=== PATIENT | male | born 1995 | race Caucasian/White ===

== ENCOUNTER 2017-11-27 12:33 | Emergency (ER) | payer SELFPAY ==
[~2017-11-27] VITALS: Ht 190.5 cm; Wt 106.8 kg
[~2017-11-27 12:33] MED LIST: ABILIFY 10MG TA10 MG PO; AMOXICILLIN 50500 MG PO; BACTRIM DS 8001 TA1 PO; GOOD NEIGHBOR200 M3 PO; NO HOME MEDICATIONS; PEN-VEE K250 MG PO; STRATTERA80 MG PO; TRAZADONE HYDR100 MG PO
[2017-11-27 15:08] VITALS: BP 132/85
== END 2017-11-27 15:08 | disposition home or self-care (01) ==
LOC: ED 12:33
DX: G43.909 Migraine, unspecified, not intractable, without status migrainosus (principal); R04.0 Epistaxis; R09.81 Nasal congestion
CPT/HCPCS: J1885; J2550

== ENCOUNTER 2018-01-03 16:20 | Emergency (ER) | payer SELFPAY ==
[~2018-01-03] VITALS: Ht 190.5 cm; Wt 113.6 kg
[2018-01-03] MEDS ORDERED: PENICILLIN-VK500 M1 PO (17:18)
[2018-01-03] MEDS ORDERED: NORCO 10-325 T1 EACH PO (17:18)
[2018-01-03 17:28] VITALS: BP 168/115
== END 2018-01-03 17:26 | disposition home or self-care (01) ==
LOC: ED 16:20
DX: K02.9 Dental caries, unspecified (principal); F17.200 Nicotine dependence, unspecified, uncomplicated; I10 Essential (primary) hypertension
CPT/HCPCS: J1885; J2550

== ENCOUNTER 2018-10-10 20:04 | Emergency (ER) | payer OTHER ==
[~2018-10-10 20:04] MED LIST changes: +AUGMENTIN 875-1 EAC1 PO; +NORCO 10-325 T1 EACH PO; +PENICILLIN-VK500 M1 PO
[2018-10-10 21:04] VITALS: BP 126/90
== END 2018-10-10 21:04 | disposition home or self-care (01) ==
LOC: ED 20:04
DX: S29.012A Strain of muscle and tendon of back wall of thorax, initial encounter (principal); F90.9 Attention-deficit hyperactivity disorder, unspecified type; F17.210 Nicotine dependence, cigarettes, uncomplicated; X50.0XXA Overexertion from strenuous movement or load, initial encounter; Y92.69 Other specified industrial and construction area as the place of occurrence of the external cause; Y99.0 Civilian activity done for income or pay
CPT/HCPCS: J1885

== ENCOUNTER 2019-03-21 22:00 | Emergency (ER) | payer SELFPAY ==
[2019-03-21] MEDS ORDERED: AUGMENTIN 875-1 EAC1 PO (23:13)
[2019-03-21] MEDS ORDERED: NORCO 325 MG-51 TA1 PO (23:16)
[2019-03-22 00:08] VITALS: BP 158/99
== END 2019-03-22 00:08 | disposition home or self-care (01) ==
LOC: ED 22:00
DX: K05.219 Aggressive periodontitis, localized, unspecified severity (principal); K02.9 Dental caries, unspecified; I10 Essential (primary) hypertension; F17.210 Nicotine dependence, cigarettes, uncomplicated
CPT/HCPCS: 90715; J1885

== ENCOUNTER 2019-07-20 06:28 | Emergency (ER) | payer SELFPAY ==
[~2019-07-20] VITALS: Ht 190.5 cm; Wt 144.5 kg
[~2019-07-20 06:28] MED LIST changes: +NORCO 325 MG-51 TA1 PO
[2019-07-20 06:44] VITALS: BP 188/117
[2019-07-20] MEDS ORDERED: NORCO 10-325 T1 EACH PO (07:19)
[2019-07-20] MEDS ORDERED: PENICILLIN-VK500 M1 PO (07:21)
== END 2019-07-20 07:38 | disposition home or self-care (01) ==
LOC: ED 06:28
DX: K02.9 Dental caries, unspecified (principal); F90.9 Attention-deficit hyperactivity disorder, unspecified type; F17.210 Nicotine dependence, cigarettes, uncomplicated
CPT/HCPCS: J1885

== ENCOUNTER → 2020-06-01 | Outpatient (CLI) | payer SELFPAY ==
[~2020-06-01] MED LIST changes: +ADVIL 200MG TA200 MG PO
== END ==
LOC: LAB 13:06
DX: Z03.89 Encounter for observation for other suspected diseases and conditions ruled out (principal); Z20.822 Contact with and (suspected) exposure to COVID-19

== ENCOUNTER 2020-11-06 11:59 | Emergency (ER) | payer SELFPAY ==
[~2020-11-06 11:59] MED LIST changes: -ADVIL 200MG TA200 MG PO
[2020-11-06] MEDS ORDERED: ADVIL 200MG TA200 MG PO (12:23)
[2020-11-06] MEDS ORDERED: AUGMENTIN 875-1 EAC1 PO (13:01)
[2020-11-06 13:28] VITALS: BP 143/99
== END 2020-11-06 13:28 | disposition home or self-care (01) ==
LOC: ED 11:59
DX: K04.7 Periapical abscess without sinus (principal); F17.200 Nicotine dependence, unspecified, uncomplicated

== ENCOUNTER → 2020-12-13 | Outpatient (CLI) | payer SELFPAY ==
[~2020-12-13] MED LIST changes: +ADVIL 200MG TA200 MG PO
== END ==
LOC: LAB 11:53
DX: Z20.822 Contact with and (suspected) exposure to COVID-19 (principal)

== ENCOUNTER 2021-04-11 00:03 | Emergency (ER) | payer SELFPAY ==
[~2021-04-11] VITALS: Ht 193 cm; Wt 144.5 kg
[2021-04-11] MEDS ORDERED: TYLENOL EXTRA500 M2 PO (00:21)
[2021-04-11 00:55] LABS: HEMATOCRIT 44.5 % (42.0-52.0); HEMOGLOBIN 14.8 g/dL (13.5-18.0); MEAN CELL VOLUME 85 fl (78-100); MEAN CORPUSCULAR HEMOGLOBIN 28 pg (27-31); MEAN CORPUSCULAR HGB CONC 33 g/dL (33-37); MEAN PLATELET VOLUME 10.2 fl (7.4-10.4); PLATELET COUNT 228 K/mm3 (130-400); RED BLOOD COUNT 5.23 M/mm3 (4.20-5.60); RED CELL DISTRIBUTION WIDTH 13.1 % (11.5-14.5); WHITE BLOOD COUNT 6.9 K/mm3 (4.8-10.8)
[2021-04-11 01:01] LABS: ALBUMIN 4.7 g/dL (3.5-5.0); POTASSIUM 3.5 mmol/L (3.5-5.1); SODIUM 140 mmol/L (136-145)
[2021-04-11 01:03] LABS: GLUCOSE 115 mg/dL (75-110)
[2021-04-11 01:04] LABS: CALCIUM 9.5 mg/dL (8.3-10.5); TOTAL PROTEIN 7.6 g/dL (6.4-8.3)
[2021-04-11 01:05] LABS: CARBON DIOXIDE 19 mmol/L (22-29)
[2021-04-11 01:07] LABS: TOTAL BILIRUBIN 0.3 mg/dL (0.2-1.2)
[2021-04-11 01:09] LABS: AST-SGOT 21 U/L (5-34)
[2021-04-11 01:12] LABS: ALT/SGPT 54 U/L (0-55)
[2021-04-11 01:20] LABS: URINE APPEARANCE CLEAR; URINE BILIRUBIN NEGATIVE (NEGATIVE); URINE COLOR YELLOW; URINE GLUCOSE NEGATIVE (NEGATIVE); URINE KETONE NEGATIVE (NEGATIVE); URINE NITRATE NEGATIVE (NEGATIVE); URINE PROTEIN(semi-quant) TRACE (NEGATIVE); URINE UROBILINOGEN NORMAL (NORMAL)
[2021-04-11 01:21] LABS: URINE BLOOD TRACE (NEGATIVE); URINE LEUKOCYTE ESTERASE NEGATIVE (NEGATIVE); URINE MUCUS PRESENT (NOT PRESENT); URINE WBC 0-1 /hpf (0-3)
[2021-04-11 01:21] LABS: TROPONIN-I < 0.030 ng/mL (<0.030)
[2021-04-11 01:26] LABS: BAND 1 % (0-10); LYMPHOCYTE 6 % (20-51); MONOCYTE 13 % (3-10); NEUTROPHILS 78 % (42-75)
[2021-04-11 03:33] VITALS: BP 145/83
== END 2021-04-11 03:33 | disposition home or self-care (01) ==
LOC: ED 00:03
PROVIDERS: Nurse Practitioner
DX: R05.1 Acute cough (principal)
CPT/HCPCS: J1885

== ENCOUNTER 2021-08-25 01:20 | Emergency (ER) | payer SELFPAY ==
[~2021-08-25 01:20] MED LIST changes: +TYLENOL EXTRA500 M2 PO
[2021-08-25] MEDS ORDERED: PREDNISONE20 M1 PO (02:41)
[2021-08-25] MEDS ORDERED: METOPROLOL SUCC50 M1 PO (02:41)
[2021-08-25] MEDS ORDERED: CEPHALEXIN500 M1 PO (02:41)
[2021-08-25 04:43] VITALS: BP 155/95
== END 2021-08-25 04:44 | disposition home or self-care (01) ==
LOC: ED 01:20
DX: H66.92 Otitis media, unspecified, left ear (principal); J30.2 Other seasonal allergic rhinitis; I10 Essential (primary) hypertension; Z86.16 Personal history of COVID-19; Z91.14 Patient's other noncompliance with medication regimen; Z28.310 Unvaccinated for COVID-19

== ENCOUNTER 2022-03-27 09:42 | Emergency (ER) | payer SELFPAY ==
[~2022-03-27] VITALS: Ht 193 cm; Wt 115.9 kg
[~2022-03-27 09:42] MED LIST changes: +CEPHALEXIN500 M1 PO; +METOPROLOL SUCC50 M1 PO; +PREDNISONE20 M1 PO
[2022-03-27] MEDS ORDERED: KETOROLAC10 MG PO (10:12)
[2022-03-27 10:54] VITALS: BP 140/89
== END 2022-03-27 10:55 | disposition home or self-care (01) ==
LOC: ED 09:42
DX: S53.402A Unspecified sprain of left elbow, initial encounter (principal); E66.9 Obesity, unspecified; Z68.31 Body mass index [BMI] 31.0-31.9, adult; Z87.891 Personal history of nicotine dependence; X58.XXXA Exposure to other specified factors, initial encounter

== ENCOUNTER → 2023-11-25 | Outpatient (CLI) | payer SELFPAY ==
[~2023-11-25] MED LIST changes: +KETOROLAC10 MG PO
== END ==
LOC: RAD 10:16
DX: M25.512 Pain in left shoulder (principal)